=== PATIENT | male | born 1965 | race Caucasian/White ===

== ENCOUNTER 2016-11-08 21:12 | Emergency (ER) | payer SELFPAY ==
[~2016-11-08] VITALS: Ht 182.9 cm; Wt 109.8 kg
[2016-11-08 22:21] LABS: Basophils # (auto) 0.1 uL; Basophils % (auto) 0.5 % (0.0-2.0); Eosinophils # (auto) 0.3 uL; Eosinophils % (auto) 2.7 % (0.0-7.0); Hematocrit 50.2 % (41.0-53.0); Hemoglobin 17.1 g/dL (13.5-17.5); Lymphocytes # (auto) 2.4 uL; Lymphocytes % (auto) 24.7 % (10.0-50.0); Mean Corpuscular Hemoglobin 31.2 pg (28.0-32.0); Mean Corpuscular Volume 91.8 fL (80.0-100.0); Mean Platelet Volume 9.1 fL (7.4-10.4); Monocytes # (auto) 0.6 uL; Monocytes % (auto) 5.8 % (0.0-12.0); Neutrophils # (auto) 6.3 uL; Neutrophils % (auto) 66.3 % (37.0-80.0); Platelet Count (auto) 252 10^3/uL (140-450); Red Cell Distribution Width 13.4 % (11.6-16.0); White Blood Cell 9.5 10^3/uL (4.4-10.8)
[2016-11-08 22:49] LABS: Albumin 3.8 g/dL (3.4-5.0); Alkaline Phosphatase 74 U/L (45-117); Anion Gap 11 (5-15); Aspartate Aminotransferase 33 U/L (15-37); BUN/Creatinine Ratio 14.6; Bilirubin, Total 0.4 mg/dL (0.2-1.0); Blood Urea Nitrogen 14 mg/dL (7-18); Calcium 8.8 mg/dL (8.5-10.1); Carbon Dioxide 25 mmol/L (21-32); Chloride 109 mmol/L (98-107); GFR African American 107 mL/min; GFR Non-African American 88 mL/min; Glucose 122 mg/dL (74-106); Magnesium 2.4 mg/dL (1.6-2.6); Potassium 4.7 mmol/L (3.5-5.1); Sodium 145 mmol/L (136-145); Total Protein 7.7 g/dL (6.4-8.2)
[2016-11-08 22:53] LABS: Partial Thromboplastin Time 30.8 sec (22.64-33.71); Prothrombin Time 10.8 sec (9.37-12.3)
[2016-11-09] MEDS ORDERED: KETOROLAC TROMETH 60MG/2ML VIAL IM ONE (02:15)
[2016-11-09] MEDS ORDERED: IBUPROFEN 600 MG TAB PO ONE ×2 (02:15→02:30)
[2016-11-09] MEDS ORDERED: HYDROcodone-ACET 5/325MG TAB PO ONE (02:15)
[2016-11-09] MEDS ORDERED: HYDROcodone-ACET 10/325MG TAB PO ONE (02:30)
[2016-11-09 03:48] VITALS: BP 110/78
== END 2016-11-09 03:54 | disposition home or self-care (01) ==
LOC: EDBD 21:21 → ER 21:21
DX: S46.002A Unspecified injury of muscle(s) and tendon(s) of the rotator cuff of left shoulder, initial encounter (principal); R07.9 Chest pain, unspecified; X50.0XXA Overexertion from strenuous movement or load, initial encounter; Y93.89 Activity, other specified; Y99.0 Civilian activity done for income or pay; Y92.89 Other specified places as the place of occurrence of the external cause
CPT/HCPCS: 36415; 71010; 80053; 83735; 84484; 85025; 85610; 85730

== ENCOUNTER 2019-03-13 16:40 | Emergency (ER) | payer SELFPAY ==
[~2019-03-13] VITALS: Ht 180.3 cm; Wt 124.7 kg
[2019-03-13 17:49] LABS: Basophils # (auto) 0.1 uL; Basophils % (auto) 1.1 % (0.0-2.0); Eosinophils # (auto) 0.2 uL; Eosinophils % (auto) 2.2 % (0.0-7.0); Hematocrit 46.7 % (41.0-53.0); Hemoglobin 16.6 g/dL (13.5-17.5); Lymphocytes # (auto) 1.5 uL; Lymphocytes % (auto) 22.2 % (10.0-50.0); Mean Corpuscular Hemoglobin 33.5 pg (28.0-32.0); Mean Corpuscular Hgb Conc. 35.6 g/dL (32.0-36.0); Mean Corpuscular Volume 94.1 fL (80.0-100.0); Monocytes # (auto) 0.6 uL; Monocytes % (auto) 8.1 % (0.0-12.0); Neutrophils # (auto) 4.6 uL; Neutrophils % (auto) 66.4 % (37.0-80.0); Nucleated Red Blood Cells % 0.2 %; Platelet Count (auto) 124 10^3/uL (140-450); Red Blood Cells 4.96 10^6/uL (4.5-5.90); Red Cell Distribution Width 13.6 % (11.8-14.3)
[2019-03-13 17:58] LABS: Albumin 3.5 g/dL (3.4-5.0); Anion Gap 11 (5-15); BUN/Creatinine Ratio 10.6; Blood Urea Nitrogen 10 mg/dL (7-18); Calcium 8.9 mg/dL (8.5-10.1); Carbon Dioxide 21 mmol/L (21-32); Chloride 104 mmol/L (98-107); GFR African American 109 mL/min; GFR Non-African American 90 mL/min; Glucose 369 mg/dL (74-106); Magnesium 1.9 mg/dL (1.6-2.6); Potassium 3.4 mmol/L (3.5-5.1); Sodium 136 mmol/L (136-145)
[2019-03-13 18:07] LABS: Alanine Aminotransferase 92 U/L (16-61); Alkaline Phosphatase 116 U/L (45-117); Aspartate Aminotransferase 86 U/L (15-37); Bilirubin, Total 1.9 mg/dL (0.2-1.0); Total Protein 7.5 g/dL (6.4-8.2)
[2019-03-13] MEDS ORDERED: SODIUM CHLORIDE 0.9% 1,000 ML IV ONE (18:45)
[2019-03-13 22:00] VITALS: BP 112/76
== END 2019-03-13 22:13 | disposition home or self-care (01) ==
LOC: ER 16:45
DX: E86.0 Dehydration (principal); F17.210 Nicotine dependence, cigarettes, uncomplicated
CPT/HCPCS: 36415; 80053; 82550; 83735; 84484; 85025; 96360; 99284; J7030

== ENCOUNTER 2023-07-21 22:38 | Emergency (ER) | payer OTHER ==
[~2023-07-21] VITALS: Ht 182.9 cm; Wt 110.0 kg
[2023-07-21] MEDS ORDERED: IBUPROFEN 800 MG TAB PO ONE (23:15)
[2023-07-22] MEDS ORDERED: ONDANSETRON ODT 4 MG TAB PO ONE (03:45)
[2023-07-22] MEDS ORDERED: HYDROcodone-ACET 5/325MG TAB PO ONE (03:45)
[2023-07-22] MEDS ORDERED: IBUP1TAB5 PO (03:48)
[2023-07-22] MEDS ORDERED: CYCL-839 PO (03:48)
[2023-07-22 04:35] VITALS: BP 119/67; PULSE 79; RESP 20; TEMP 97.9
[2023-07-22 04:37] VITALS: O2SAT 97
== END 2023-07-22 04:46 | disposition home or self-care (01) ==
LOC: ER 22:38
DX: S43.402A Unspecified sprain of left shoulder joint, initial encounter (principal); F17.210 Nicotine dependence, cigarettes, uncomplicated; Z79.1 Long term (current) use of non-steroidal anti-inflammatories (NSAID); Z79.899 Other long term (current) drug therapy; X50.1XXA Overexertion from prolonged static or awkward postures, initial encounter; Y93.89 Activity, other specified; Y92.89 Other specified places as the place of occurrence of the external cause; Y99.8 Other external cause status
CPT/HCPCS: 73030; 99284; Q0162

== ENCOUNTER 2024-12-25 15:59 | Inpatient (IN) | payer MEDICAID, OTHER ==
[~2024-12-25] VITALS: Ht 182.9 cm; Wt 110.2 kg
[~2024-12-25 15:59] MED LIST: CYCL-839 PO; IBUP1TAB5 PO
--- NOTE | 2024-12-25 16:27 | ED.PDOC ---
GI ASSESSMENT HPI Comments 59-year-old male with a history of diabetes brought in by self complaining of 1 episode of vomiting blood about an hour prior to arrival. Patient states he did not have preceding nausea. Patient states he was performing regular daily activities when he suddenly developed the urge to vomit, then vomited a moderate amount of dark red blood (more than a cup). Denies any previous history of similar symptoms, abdominal pain, lightheadedness, shortness of breath, diarrhea, or urinary symptoms. He states he has been constipated recently. He states he takes a baby aspirin daily and occasionally takes ibuprofen for pain. Chief Complaint: Nausea/Vomiting Time Seen by MD: 16:20 Primary Care Provider: unknown Reviewed Notes: Nurses Notes, Medications, Allergies Allergies: Coded Allergies: NO KNOWN ALLERGIES (Unverified , 03/13/19) Home Meds Active Scripts Ibuprofen Micronized (Ibuprofen) 600 Mg Tab, 600 MG PO Q8HPRN PRN, #30 TAB 0 Refills Prov:[facility] 07/22/23 Cyclobenzaprine Hcl (Cyclobenzaprine Hcl) 10 Mg Tab, 10 MG PO TID, #12 TAB 0 Refills Prov:[facility] 07/22/23 Information Source: Patient Mode of Arrival: Ambulatory Timing: Minutes Duration: Since onset, Minutes Prehospital treatment: None Quality: None Vomitus: Bilious, Bloody, Tarry Black Stool: Other (constipated) Severity: Moderate Recent: None Recent Hx of: Diabetes Pain Location: None Associated sign and symptoms: Vomiting (black/bloody) Past Medical History PAST MEDICAL HISTORY: DM Surgical History (Other): Bilat shoulder Sx Family History Family History: Reviewed,noncontributory to illness Social History Smoker: Non-Smoker, Unknown Alcohol: Denies ETOH Use, Unknown Drugs: Denies Drug Use, Unknown Lives In: Home Constitutional: denies: chills, diaphoresis, fatigue, fever, malaise, sweats, weakness, others EENTM: denies: blurred vision, double vision, ear bleeding, ear discharge, ear drainage, ear pain, ear ringing, eye pain, eye redness, hearing loss, mouth pain, mouth swelling, nasal discharge, nose bleeding, nose congestion, nose pain, photophobia, tearing, throat pain, throat swelling, voice changes, others Respiratory: denies: cough, hemoptysis, orthopnea, SOB at rest, shortness of breath, SOB with excertion, stridor, wheezing, others Cardiovascular: denies: chest pain, dizzy spells, diaphoresis, Dyspnea on exertion, edema, irregular heart beat, left arm pain, lightheadedness, palpitations, PND, syncope, others Gastrointestinal: reports: hematemesis, vomiting; denies: abdomen distended, abdominal pain, blood streaked bowels, constipated, diarrhea, dysphagia, difficulty swallowing, melena, nausea, poor appetite, poor fluid intake, rectal bleeding, rectal pain, others Genitourinary: denies: burning, dysuria, flank pain, frequency, hematuria, incontinence, penile discharge, penile sore, pain, testicle pain, testicle swelling, urgency, others Neurological: denies: dizziness, fainting, headache, left sided numbness, left sided weakness, numbness, paresthesia, pre-existing deficit, right sided numbness, right sided weakness, seizure, speech problems, tingling, tremors, weakness, others Musculoskeletal: denies: back pain, gout, joint pain, joint swelling, muscle pain, muscle stiffness, neck pain, others Integumetry: denies: bruises, change in color, change in hair/nails, dryness, laceration, lesions, lumps, rash, wounds, others Allergic/Immunocompromised: denies: Difficulty Healing, Frequent Infections, Hives, Itching, others Hematologic/Lymphatic: denies: anemia, blood clots, easy bleeding, easy bruising, swollen glands, others Endocrine: denies: excessive hunger, excessive sweating, excessive thirst, excessive urination, flushing, intolerance to cold, intolerance to heat, unexplained weight gain, unexplained weight loss, others Psychiatric: denies: anxiety, bipolar disorder, depression, hopeless, panic disorder, schizophrenia, sleepless, suicidal, others All Other Systems: Reviewed and Negative Physical Exam General Appearance: No Apparent Distress, Normal HEENT: Other (Pupils and face symmetric. Moist mucous membranes.) Neck: Full Range of Motion, Normal Inspection Respiratory: Lungs Clear, No Accessory Muscle Use, No Respiratory Distress, Normal Breath Sounds Cardiovascular: No Edema, No JVD, Regular Rate/Rhythm Breast Exam: Deferred Gastrointestinal: Non Tender, Soft Genitalia: Deferred Pelvic: Deferred Rectal: Deferred Extremities: Normal inspection, Normal range of motion, Non-tender, No pedal edema Musculoskeletal : Apperance: Normal Neurologic: Alert (Oriented x4), Normal Affect, Normal Mood, Other (Ambulatory) Cerebellar Function: NOT DONE Reflexes: NOT DONE Skin: Dry, Normal Color, Warm Lymphatic: NOT DONE Was a procedure done? Was a procedure done?: No GI differential Dx Differential Diagnosis: Esophagitis, Gastritis/PUD, Gastroenteritis, GI hemorrhage, Dehydration, Electrolyte Imbalance, Food Poisoning, Bacterial, Viral, Hypovolemia, Ischemic Bowel, Anemia, Esophageal Varicies, Stress Ulcer, Other (Coagulopathy, among others) X-Ray, Labs, Meds, VS Vital Signs Date Time Temp Pulse Resp B/P (MAP) Pulse Ox O2 Delivery O2 Flow Rate FiO2 12/25/24 16:13 98.0 76 16 131/83 (99) 95 98.0 Lab Test 12/25/24 17:05 Range/Units White Blood Count 6.7 4.4-10.8 10^3/uL Red Blood Count 4.50 4.5-5.90 10^6/uL Hemoglobin 14.7 13.5-17.5 g/dL Hematocrit 42.7 41.0-53.0 % Mean Corpuscular Volume 94.9 80.0-100.0 fL Mean Corpuscular Hemoglobin 32.8 H 28.0-32.0 pg Mean Corpuscular Hemoglobin Concent 34.5 32.0-36.0 g/dL Red Cell Distribution Width 14.7 H 11.8-14.3 % Platelet Count 121 L 140-450 10^3/uL Mean Platelet Volume 10.0 6.9-10.8 fL Neutrophils (%) (Auto) 70.5 37.0-80.0 % Lymphocytes (%) (Auto) 16.4 10.0-50.0 % Monocytes (%) (Auto) 9.8 0.0-12.0 % Eosinophils (%) (Auto) 2.3 0.0-7.0 % Basophils (%) (Auto) 1.0 0.0-2.0 % Neutrophils # (Auto) 4.7 1.6-8.6 10 ^3/uL Lymphocytes # (Auto) 1.1 0.4-5.4 10 ^3/uL Monocytes # (Auto) 0.7 0-1.3 10 ^3/uL Eosinophils # (Auto) 0.2 0-0.8 10 ^3/uL Basophils # (Auto) 0.1 0-0.2 10 ^3/uL Nucleated Red Blood Cells 0.2 % Prothrombin Time 13.8 H 9.3-11.8 sec Prothrombin Time INR 1.34 H 0.9-1.15 Activated Partial Thromboplast Time 29.1 24.5-34.5 SEC Sodium Level 140 136-145 mmol/L Potassium Level 4.1 3.5-5.1 mmol/L Chloride Level 110 H 98-107 mmol/L Carbon Dioxide Level 22 20-31 mmol/L Anion Gap 8 5-15 Blood Urea Nitrogen 16 9-23 mg/dL Creatinine 0.62 L 0.700-1.30 mg/dL Glomerular Filtration Rate Calc 111 >90 mL/min BUN/Creatinine Ratio 25.8 H 10.0-20.0 Serum Glucose 171 H 74-106 mg/dL Calcium Level 8.7 8.7-10.4 mg/dL PROCEDURE(s): ABPL - CT AB PEL WO CON-NO ORAL OR IV REASON: hematemesis ORDER NUMBER(s): [id number], ACCESSION NUMBER(s): [id number] CT abdomen and pelvis without contrast INDICATION: hematemesis TECHNIQUE: Serial axial images were performed through the abdomen and pelvis and then reformatted in the sagittal and coronal plane. All CT scans at this medical facility are performed using dose modulation techniques as appropriate to a performed exam including the following: Automated exposure control was utilized; adjustment of the MA and/or KvP according to patient size; and use of iterative reconstruction technique. FINDINGS: Liver is normal in size without mass. The liver margin is slightly nodular in appearance suggesting cirrhosis. Spleen is slightly enlarged measuring 16 cm. No renal masses, stones or hydronephrosis. No masses or enlargement of the adrenal glands or pancreas. No biliary dilatation. No gallstones. No distention of bowel loops to suggest mechanical obstruction of bowel. The appendix is normal in appearance. No free fluid. Within the pelvis, bladder is smooth walled without stones. No abnormal masses or fluid collections. IMPRESSION: 1. Cirrhotic appearing liver with splenomegaly probably due to portal hypertension. Because no IV contrast was given evaluation for varices is limited.No evidence 2. No evidence of bowel obstruction. Computed Tomographic Radiation Dosimetry Report: Total CTDI vol = 23.19mGy Total DLP = 1322.75mGy-cm Low dose protocols were performed. X-Ray, Labs, Meds, VS Comment 59-year-old male with a history of diabetes complaining of 1 episode of painless bloody emesis Vitals unremarkable Exam unremarkable Rhythm strip independently interpreted by me: Sinus rhythm, rate 76, no ectopy. CT abdomen and pelvis: IMPRESSION: 1. Cirrhotic appearing liver with splenomegaly probably due to portal hypertension. Because no IV contrast was given evaluation for varices is limited.No evidence 2. No evidence of bowel obstruction. CBC remarkable for platelets 121, basic metabolic panel unremarkable, coag panel remarkable for PT 13.8, INR 1.34 Patient treated with the following in the ED: Zofran 4 mg IV, Protonix 40 mg IV, octreotide 100 mg IV On re-evaluation, patient is pain-free and appears hemodynamically stable. No further episodes of emesis. Plan is to admit the patient for GI evaluation. Time of 1ST Reevaluation: 16:50 Reevaluation 1ST: Unchanged Time of 2ND Reevaluation: 18:22 Reevaluation 2ND: Unchanged Patient Education/Counseling: Diagnosis, Treatment, Prognosis Family Education/Counseling: No Family Present Departure 1 Departure Time of Disposition: 18:22 Impression: Primary Impression: Hematemesis Qualified Codes: K92.0 - Hematemesis Additional Impression: Coagulopathy Disposition: ADMITTED INPATIENT Admit to: [facility] Condition: Guarded Critical Care Note Critical Care Time?: No Stability Stability form required: No Heart Score Heart Score: Heart Score Response (Comments) Value History N/A 0 EKG N/A 0 Age N/A 0 Risk Factors N/A 0 Troponin N/A 0 Total 0 I personally scribed for DONNIE DANIELS MD ([email or web address]) on 12/25/24 at 16:27. Electronically submitted by James Espinoza ([email or web address]). DONNIE DANIELS MD Dec 25, 2024 16:27
--- NOTE | 2024-12-25 17:13 | DVH ---
CT abdomen and pelvis without contrast INDICATION: hematemesis TECHNIQUE: Serial axial images were performed through the abdomen and pelvis and then reformatted in the sagittal and coronal plane. All CT scans at this medical facility are performed using dose modula tion techniques as appropriate to a performed exam including the following: Automated exposure contro l was utilized; adjustment of the MA and/or KvP according to patient size; and use of iterative recon struction technique. FINDINGS: Liver is normal in size without mass. The liver margin is slightly nodular in appearance helm ggesting cirrhosis. Spleen is slightly enlarged measuring 16 cm. No renal masses, stones or hydronephrosis. No masses or enlargement of the adrenal glands or pancreas . No biliary dilatation. No gallstones. No distention of bowel loops to suggest mechanical obstructio n of bowel. The appendix is normal in appearance. No free fluid. Within the pelvis, bladder is smooth walled without stones. No abnormal masses or fluid collections. IMPRESSION: 1. Cirrhotic appearing liver with splenomegaly probably due to portal hypertension. Because no IV con trast was given evaluation for varices is limited.No evidence 2. No evidence of bowel obstruction. Computed Tomographic Radiation Dosimetry Report: Total CTDI vol = 23.19mGy Total DLP = 1322.75mGy-cm Low dose protocols were performed.
[2024-12-25 17:30] LABS: Basophils # (auto) 0.1 10 ^3/uL (0-0.2); Eosinophils # (auto) 0.2 10 ^3/uL (0-0.8); Eosinophils % (auto) 2.3 % (0.0-7.0); Hematocrit 42.7 % (41.0-53.0); Hemoglobin 14.7 g/dL (13.5-17.5); Lymphocytes # (auto) 1.1 10 ^3/uL (0.4-5.4); Lymphocytes % (auto) 16.4 % (10.0-50.0); Mean Corpuscular Hemoglobin 32.8 pg (28.0-32.0); Mean Corpuscular Hgb Conc. 34.5 g/dL (32.0-36.0); Mean Corpuscular Volume 94.9 fL (80.0-100.0); Monocytes # (auto) 0.7 10 ^3/uL (0-1.3); Monocytes % (auto) 9.8 % (0.0-12.0); Neutrophils # (auto) 4.7 10 ^3/uL (1.6-8.6); Neutrophils % (auto) 70.5 % (37.0-80.0); Nucleated Red Blood Cells % 0.2 %; Platelet Count (auto) 121 10^3/uL (140-450); Red Cell Distribution Width 14.7 % (11.8-14.3); White Blood Cell 6.7 10^3/uL (4.4-10.8)
[2024-12-25 17:39] LABS: Potassium 4.1 mmol/L (3.5-5.1); Sodium 140 mmol/L (136-145)
[2024-12-25 17:40] LABS: Anion Gap 8 (5-15); Calcium 8.7 mg/dL (8.7-10.4); Carbon Dioxide 22 mmol/L (20-31); Chloride 110 mmol/L (98-107)
[2024-12-25 17:44] LABS: INR 1.34 (0.9-1.15); Partial Thromboplastin Time 29.1 SEC (24.5-34.5); Prothrombin Time 13.8 sec (9.3-11.8)
[2024-12-25 17:45] LABS: BUN/Creatinine Ratio 25.8 (10.0-20.0); Blood Urea Nitrogen 16 mg/dL (9-23)
[2024-12-25 17:49] LABS: Glucose 171 mg/dL (74-106)
[2024-12-25] MEDS: ONDANSETRON HCL 4 MG/2 ML VIAL IV ONE (18:25)
[2024-12-25] MEDS: PANTOPRAZOLE 40 MG/10 ML VIAL INJ IV ONE (18:25)
[2024-12-25] MEDS: OCTREOTIDE ACETATE 100 MCG in SODIUM CHL 0.9% 50 ML IV ONE (18:26)
[2024-12-25 19:40] LABS: Urine Bacteria FEW /hpf (None Seen); Urine Blood Negative /uL (Negative); Urine Clarity Clear (Clear); Urine Color Yellow (Yellow); Urine Mucus MODERATE (None Seen); Urine Protein, UAD 1+ (Negative); Urine Specific Gravity 1.036 (1.001-1.035); Urine Squamous Epithelial Cell FEW /hpf (<5); Urine Urobilinogen 3 mg/dL (Negative); Urine WBC 1 /HPF (0-3)
[2024-12-25] MEDS ORDERED: DEXTROSE (50%) 50ML SYRG IV PRN (20:00)
[2024-12-25] MEDS: SODIUM CHLORIDE 0.9% 1,000 ML IV ONE (20:00)
[2024-12-25] MEDS ORDERED: ONDANSETRON HCL 4 MG/2 ML VIAL IV PRN (20:00)
--- NOTE | 2024-12-25 21:20 | DVHHP2 ---
History of Present Illness Reason for Visit: Hematemesis History of Present Illness 59-year-old male presents for evaluation of hematemesis. Patient reports a one day history of having three episodes of dark color vomit. He states that a week ago he started taking Suboxone for narcotic dependency. He also reports a five day history of constipation. Denies melena. No other acute complaints reported. Past Medical History Diabetes mellitus Past Surgical History Shoulder surgery Family History Noncontributory Smoke: No ALCOHOL: none Drugs: None Lives: with Family Review of Systems Review of Systems Review of systems are currently negative otherwise addressed in HPI. Allergies: Coded Allergies: NO KNOWN ALLERGIES (Unverified , 03/13/19) Medications Current Medications Medications Dose Ordered Sig/Shahla Route Start Time Stop Time Status Last Admin Dose Admin Pantoprazole Sodium 40 mg BID IV 12/25/24 22:00 Diagnostic Test (Pha) 1 strip Q6HR 12/26/24 00:00 Insulin Human Regular Q6HR SC 12/26/24 00:00 Dextrose 50 ml UD PRN IV 12/25/24 20:00 Ondansetron HCl 4 mg Q4HP PRN IV 12/25/24 20:00 Exam Vital Signs Vital Signs Date Time Temp Pulse Resp B/P (MAP) Pulse Ox O2 Delivery O2 Flow Rate FiO2 12/25/24 18:28 97 18 120/78 (92) 97 12/25/24 16:13 98.0 98.0 Exam Gen: 59-year-old male in no apparent distress. Skin: Warm, dry, normal color and texture, no rash. HEENT: Normocephalic atraumatic, mucous membranes moist and pink. Neck: Cervical and supraclavicular nodes normal without enlargement, trachea is midline, thyroid gland is normal without masses. Pulmonary: Clear to auscultation and percussion bilaterally. Cardiac: Regular rate and rhythm. No murmur Abdomen: Soft, nontender, nondistended, bowel sounds present all 4 quadrants, no guarding, no rigidity, no organomegaly. Extremities: No cyanosis, clubbing, no edema Neuro: Cranial nerves II through XII grossly intact, normal affect and speech, no focal motor deficits. Labs/Xrays ORDERING PHYSICIAN: DONNIE DANIELS MD PROCEDURE(s): ABPL - CT AB PEL WO CON-NO ORAL OR IV REASON: hematemesis ORDER NUMBER(s): [id number], ACCESSION NUMBER(s): [id number] CT abdomen and pelvis without contrast INDICATION: hematemesis TECHNIQUE: Serial axial images were performed through the abdomen and pelvis and then reformatted in the sagittal and coronal plane. All CT scans at this medical facility are performed using dose modulation techniques as appropriate to a performed exam including the following: Automated exposure control was utilized; adjustment of the MA and/or KvP according to patient size; and use of iterative reconstruction technique. FINDINGS: Liver is normal in size without mass. The liver margin is slightly nodular in appearance suggesting cirrhosis. Spleen is slightly enlarged measuring 16 cm. No renal masses, stones or hydronephrosis. No masses or enlargement of the adren al glands or pancreas. No biliary dilatation. No gallstones. No distention of bowel loops to suggest mechanical obstruction of bowel. The appendix is normal in appearance. No free fluid. Within the pelvis, bladder is smooth walled without stones. No abnormal masses or fluid collections. IMPRESSION: 1. Cirrhotic appearing liver with splenomegaly probably due to portal hypertensi on. Because no IV contrast was given evaluation for varices is limited.No evidence 2. No evidence of bowel obstruction. Computed Tomographic Radiation Dosimetry Report: Total CTDI vol = 23.19mGy Total DLP = 1322.75mGy-cm Low dose protocols were performed. ATED BY: SALBADOR CHAN MD Labs Test 12/25/24 18:54 12/25/24 17:05 Range/Units Urine Color Yellow Yellow Urine Clarity Clear Clear Urine pH 6.0 5.0-9.0 Urine Specific [place] 1.036 H 1.001-1.035 Urine Protein 1+ H Negative Urine Ketones Trace Negative Urine Blood Negative Negative /uL Urine Nitrite Negative Negative Urine Bilirubin Negative Negative Urine Urobilinogen 3 H Negative mg/dL Urine Leukocyte Esterase Negative Negative /uL Urine RBC 1 0 - 3 /hpf Urine Microscopic WBC 1 0-3 /HPF Urine Squamous Epithelial Cells Few <5 /hpf Urine Bacteria Few H None Seen /hpf Urine Mucus Moderate None Seen Urine Glucose 3+ H Normal mg/dL White Blood Count 6.7 4.4-10.8 10^3/uL Red Blood Count 4.50 4.5-5.90 10^6/uL Hemoglobin 14.7 13.5-17.5 g/dL Hematocrit 42.7 41.0-53.0 % Mean Corpuscular Volume 94.9 80.0-100.0 fL Mean Corpuscular Hemoglobin 32.8 H 28.0-32.0 pg Mean Corpuscular Hemoglobin Concent 34.5 32.0-36.0 g/dL Red Cell Distribution Width 14.7 H 11.8-14.3 % Platelet Count 121 L 140-450 10^3/uL Mean Platelet Volume 10.0 6.9-10.8 fL Neutrophils (%) (Auto) 70.5 37.0-80.0 % Lymphocytes (%) (Auto) 16.4 10.0-50.0 % Monocytes (%) (Auto) 9.8 0.0-12.0 % Eosinophils (%) (Auto) 2.3 0.0-7.0 % Basophils (%) (Auto) 1.0 0.0-2.0 % Neutrophils # (Auto) 4.7 1.6-8.6 10 ^3/uL Lymphocytes # (Auto) 1.1 0.4-5.4 10 ^3/uL Monocytes # (Auto) 0.7 0-1.3 10 ^3/uL Eosinophils # (Auto) 0.2 0-0.8 10 ^3/uL Basophils # (Auto) 0.1 0-0.2 10 ^3/uL Nucleated Red Blood Cells 0.2 % Prothrombin Time 13.8 H 9.3-11.8 sec Prothrombin Time INR 1.34 H 0.9-1.15 Activated Partial Thromboplast Time 29.1 24.5-34.5 SEC Sodium Level 140 136-145 mmol/L Potassium Level 4.1 3.5-5.1 mmol/L Chloride Level 110 H 98-107 mmol/L Carbon Dioxide Level 22 20-31 mmol/L Anion Gap 8 5-15 Blood Urea Nitrogen 16 9-23 mg/dL Creatinine 0.62 L 0.700-1.30 mg/dL Glomerular Filtration Rate Calc 111 >90 mL/min BUN/Creatinine Ratio 25.8 H 10.0-20.0 Serum Glucose 171 H 74-106 mg/dL Calcium Level 8.7 8.7-10.4 mg/dL Assessment/Plan Assessment/Plan Assessment Hematemesis Diabetes mellitus Plan Admit the patient to Med surge to the hospitalist GI consult NPO Protonix Type and screen pending Continue treatment per orders. Plan discussed with: Patient My Orders Orders - CHARLES CELESTIN Procedure Category Date Status Time Admit ADMIT 12/25/24 Transmitted 19:35 Pantoprazole PHA 12/25/24 In Process (Protonix) 22:00 Type And Screen BBK 12/25/24 In Process 19:50 Hemoglobin & LAB 12/25/24 Logged Hematocrit 21:00 * Gi Dvh Shredder Picker CONS 12/25/24 Transmitted 19:50 Glucose Blood PHA 12/26/24 In Process (Accu-Chek Comfort 00:00 Insulin R (Human) PHA 12/26/24 In Process (Insulin R) 00:00 Dextrose 50% Syringe PHA 12/25/24 In Process 20:00 Ondansetron Hcl PHA 12/25/24 In Process (Zofran) 20:00 Complete Blood Count LAB 12/26/24 Verified 04:00 Comprehensive LAB 12/26/24 Verified Metabolic Panel 04:00 Npo (Nothing By DIET 12/26/24 Transmitted Mouth) Diet Breakfast Condition: Stable BRENNA 12/25/24 In Process 19:50 Bedrest With Bathroom BRENNA 12/25/24 In Process Privileg 19:50 Sodium Chloride 0.9% PHA 12/25/24 In Process 20:00 Stool Occult Blood LAB 12/25/24 Uncollected 19:57 Gastric Occult Blood LAB 12/25/24 Logged 19:57 Date of Service: Dec 25, 2024 Billing Provider: CHARLES CELESTIN Common Visit Codes: [id number] INP/OBS CARE (HIGH) CHARLES CELESTIN Dec 25, 2024 21:19
[2024-12-25 21:24] LABS: Hematocrit 43.2 % (41.0-53.0); Hemoglobin 14.9 g/dL (13.5-17.5)
[2024-12-26] VITALS (7 sets, daily range): BP systolic 109–141; BP diastolic 65–76; PULSE 45–87; RESP 14–20; TEMP 97.6–98; O2SAT 45–98
[2024-12-26] MEDS: PANTOPRAZOLE 40 MG/10 ML VIAL INJ IV SCH (00:15)
[2024-12-26] MEDS: ACCU-CHEK COMFORT CURVE STRIP VI SCH (00:15)
[2024-12-26] MEDS: InsuLIN REG 1unit/0.01ml Soln (100units/ml) SC SCH (00:21)
[2024-12-26 06:14] LABS: Alanine Aminotransferase 38 U/L (7-40); Alkaline Phosphatase 70 U/L (46-116); Anion Gap 8 (5-15); BUN/Creatinine Ratio 25.9 (10.0-20.0); Blood Urea Nitrogen 14 mg/dL (9-23); Carbon Dioxide 23 mmol/L (20-31); Sodium 141 mmol/L (136-145); Total Protein 5.8 g/dL (5.7-8.2)
[2024-12-26 06:25] LABS: Albumin 3.2 g/dL (3.2-4.8); Aspartate Aminotransferase 41 U/L (13-40); Bilirubin, Total 2.5 mg/dL (0.2-1.0); Calcium 8.4 mg/dL (8.7-10.4); Chloride 110 mmol/L (98-107); Glucose 128 mg/dL (74-106)
[2024-12-26 08:11] LABS: Basophils # (auto) 0 10 ^3/uL (0-0.2); Eosinophils # (auto) 0.2 10 ^3/uL (0-0.8); Eosinophils % (auto) 5.6 % (0.0-7.0); Hematocrit 37.5 % (41.0-53.0); Hemoglobin 12.8 g/dL (13.5-17.5); Lymphocytes % (auto) 23.6 % (10.0-50.0); Mean Corpuscular Hemoglobin 32.3 pg (28.0-32.0); Mean Corpuscular Hgb Conc. 34.1 g/dL (32.0-36.0); Mean Corpuscular Volume 94.7 fL (80.0-100.0); Monocytes # (auto) 0.5 10 ^3/uL (0-1.3); Monocytes % (auto) 10.5 % (0.0-12.0); Neutrophils # (auto) 2.6 10 ^3/uL (1.6-8.6); Neutrophils % (auto) 59.3 % (37.0-80.0); Nucleated Red Blood Cells % 0.1 %; Platelet Count (auto) 77 10^3/uL (140-450); Red Blood Cells 3.96 10^6/uL (4.5-5.90); Red Cell Distribution Width 14.7 % (11.8-14.3); White Blood Cell 4.4 10^3/uL (4.4-10.8)
--- NOTE | 2024-12-26 12:58 | DVHINCON2 ---
GI Consult Consult Note GI consult note Date of Consultation: 12/26/2024 Chief Complaint: Hematemesis Referring Physician: Dirk LEWIS H&P: 59-year-old male presented to ER with complains of hematemesis, for one day, with three episodes of dark emesis. No nausea or vomiting today. Denies abdominal pain. Last bowel movement one-week ago, no melena or red blood in stool. Patient has a history of taking hydrocodone for chronic pain, has been treated with Suboxone for the narcotic dependency, patient is started symptoms of nausea vomiting after being treated with Suboxone. Patient has history of heavy alcohol use, quit eight years ago No EGD or colonoscopy in past Take aspirin every day, last dose two days ago. Takes Motrin as needed about twice a week for pain Past Medical History: Diabetes mellitus Past Surgical History: Shoulder surgery Social History: NO smoking, quit drinking ETOH Family History: Noncontributory Review of Systems: Constitutional: no fever, chill, weight loss HEENT: no eye pain, no hearing loss, no oral lesion, no scleral icterus Heart: no chest pain, no chest pressure Lung: no cough, no dyspnea with exertion Abdomen: see HPI Physical exam: General: NAD, AAOX3 Chest: lung adames clear to auscultation Heart: RRR, no murmur Abdomen: non-distended, no tenderness to palpation, +BS Labs: Labs Test 12/26/24 11:17 12/26/24 07:49 12/26/24 05:08 12/25/24 18:54 Range/Units POC Glucose 163 H 70-106 mg/dl White Blood Count 4.4 # 4.4-10.8 10^3/uL Red Blood Count 3.96 L 4.5-5.90 10^6/uL Hemoglobin 12.8 L 13.5-17.5 g/dL Hematocrit 37.5 #L 41.0-53.0 % Mean Corpuscular Volume 94.7 80.0-100.0 fL Mean Corpuscular Hemoglobin 32.3 H 28.0-32.0 pg Mean Corpuscular Hemoglobin Concent 34.1 32.0-36.0 g/dL Red Cell Distribution Width 14.7 H 11.8-14.3 % Platelet Count 77 L 140-450 10^3/uL Mean Platelet Volume 8.7 6.9-10.8 fL Neutrophils (%) (Auto) 59.3 37.0-80.0 % Lymphocytes (%) (Auto) 23.6 10.0-50.0 % Monocytes (%) (Auto) 10.5 0.0-12.0 % Eosinophils (%) (Auto) 5.6 0.0-7.0 % Basophils (%) (Auto) 1.0 0.0-2.0 % Neutrophils # (Auto) 2.6 1.6-8.6 10 ^3/uL Lymphocytes # (Auto) 1.0 0.4-5.4 10 ^3/uL Monocytes # (Auto) 0.5 0-1.3 10 ^3/uL Eosinophils # (Auto) 0.2 0-0.8 10 ^3/uL Basophils # (Auto) 0 0-0.2 10 ^3/uL Nucleated Red Blood Cells 0.1 % Sodium Level 141 136-145 mmol/L Potassium Level 4.0 3.5-5.1 mmol/L Chloride Level 110 H 98-107 mmol/L Carbon Dioxide Level 23 20-31 mmol/L Anion Gap 8 5-15 Blood Urea Nitrogen 14 9-23 mg/dL Creatinine 0.54 L 0.700-1.30 mg/dL Glomerular Filtration Rate Calc 116 >90 mL/min BUN/Creatinine Ratio 25.9 H 10.0-20.0 Serum Glucose 128 H 74-106 mg/dL Calcium Level 8.4 L 8.7-10.4 mg/dL Total Bilirubin 2.5 H 0.2-1.0 mg/dL Aspartate Amino Transferase (AST) 41 H 13-40 U/L Alanine Aminotransferase (ALT) 38 7-40 U/L Alkaline Phosphatase 70 46-116 U/L Total Protein 5.8 5.7-8.2 g/dL Albumin 3.2 3.2-4.8 g/dL Urine Color Yellow Yellow Urine Clarity Clear Clear Urine pH 6.0 5.0-9.0 Urine Specific [place] 1.036 H 1.001-1.035 Urine Protein 1+ H Negative Urine Ketones Trace Negative Urine Blood Negative Negative /uL Urine Nitrite Negative Negative Urine Bilirubin Negative Negative Urine Urobilinogen 3 H Negative mg/dL Urine Leukocyte Esterase Negative Negative /uL Urine RBC 1 0 - 3 /hpf Urine Microscopic WBC 1 0-3 /HPF Urine Squamous Epithelial Cells Few <5 /hpf Urine Bacteria Few H None Seen /hpf Urine Mucus Moderate None Seen Urine Glucose 3+ H Normal mg/dL Test 12/25/24 17:05 Range/Units Prothrombin Time 13.8 H 9.3-11.8 sec Prothrombin Time INR 1.34 H 0.9-1.15 Activated Partial Thromboplast Time 29.1 24.5-34.5 SEC Imaging: CT abdomen pelvis IMPRESSION: 1. Cirrhotic appearing liver with splenomegaly probably due to portal hypertension. Because no IV contrast was given evaluation for varices is limited.No evidence 2. No evidence of bowel obstruction. Assessment: Hematemesis Opioid dependence History of alcohol use Cirrhotic appearing liver per CT results Plan: Discussed with Dr. Elizondo - Pt will be scheduled for an EGD per OR availability. Pt was informed of the risks (bleeding, infection, perforation, reaction to sedation medications and cardiopulmonary arrest) and benefit and is agreeable to undergo the procedures. Protonix and Zofran Colace. Lactulose if needed We will continue to monitor patient Discussed plan with patient and RN Thank you for this consult Date of Service: Dec 26, 2024 Billing Provider: ASHLY MILLER Common Visit Codes: CONSULT ONLY Consultation Codes: [id number] CONSULT <60MIN ASHLY MILLER Dec 26, 2024 12:58
[2024-12-26] MEDS ORDERED: DOCUSATE SOD 100 MG CAP PO PRN (13:00)
--- NOTE | 2024-12-26 13:26 | DVHPN2 ---
Assessment/Plan Assessment/Plan Progress note 59 M with prior alcohol use, prior opioid use on suboxone therapy, admitted for hematemesis. Patient was previously using hydrocodone, but recently swapped with suboxone and was having constipation and nausea with it. Patient had hematemesis 1 day [employer]. No BM since 1 week. Using motrin PRN for pain. Pt would like to stop taking suboxone. Physical exam AOx4 Obese PERLLA MMM Clear breath sounds S1 S2 RRR no murmur Abdomen soft nontender No LE edema Labs EKG imaging reviewed Assessment and plan UGIB PUD vs esophageal varices (low susp) Possible cirrhosis thrombocytopenia high INR asymptomatic bacteriuria NIDDM opioid induced constipation hx of opioid use on suboxone hx of alcohol use GI consult to scope NPO senna MiraLAX ISS while NPO Trend H/H will symptomatically treat if opioid withdrawal occurs protonix full code dvt ppx hold iso bleeding diet NPO Plan discussed with: Patient My Orders Orders - CRISSY BUTT MD Procedure Category Date Status Time Senna Pod Tablet PHA 12/26/24 Logged (Senokot Tablet) 13:30 Polyethylene Glycol PHA 12/27/24 Logged 17g Powder (Miralax 10:00 Complete Blood Count LAB 12/27/24 Verified 04:00 Basic Metabolic Panel LAB 12/27/24 Verified 04:00 Date of Service: Dec 26, 2024 Billing Provider: CRISSY BUTT MD Common Visit Codes: [id number] INP/OBS CARE(HIGH) CRISSY BUTT MD Dec 26, 2024 13:26
[2024-12-26] MEDS: SENNA 8.6 MG TAB PO ONE (16:25)
[2024-12-27] VITALS (10 sets, daily range): BP systolic 104–125; BP diastolic 61–86; PULSE 56–114; RESP 16–20; TEMP 97.4–98.3; O2SAT 95–100
--- NOTE | 2024-12-27 06:44 | DVH ---
CHEST RADIOGRAPH Indication: pre-op Technique: Single frontal view of the chest was obtained Comparison: None FINDINGS: Lines and Tubes: None Lungs: No focal consolidation. Pleura: No effusion. No pneumothorax. Cardiomediastinal contours: Unremarkable Bones: No acute osseous abnormality. IMPRESSION: 1. No acute cardiopulmonary disease.
[2024-12-27 06:53] LABS: Anion Gap 8 (5-15); Carbon Dioxide 25 mmol/L (20-31); Potassium 3.9 mmol/L (3.5-5.1); Sodium 142 mmol/L (136-145)
[2024-12-27 06:58] LABS: BUN/Creatinine Ratio 18.5 (10.0-20.0); Basophils # (auto) 0 10 ^3/uL (0-0.2); Basophils % (auto) 0.7 % (0.0-2.0); Blood Urea Nitrogen 12 mg/dL (9-23); Eosinophils # (auto) 0.2 10 ^3/uL (0-0.8); Eosinophils % (auto) 5.4 % (0.0-7.0); Hematocrit 34.6 % (41.0-53.0); Hemoglobin 12.1 g/dL (13.5-17.5); Lymphocytes # (auto) 0.7 10 ^3/uL (0.4-5.4); Lymphocytes % (auto) 18.8 % (10.0-50.0); Mean Corpuscular Hgb Conc. 34.9 g/dL (32.0-36.0); Mean Corpuscular Volume 94.4 fL (80.0-100.0); Monocytes # (auto) 0.5 10 ^3/uL (0-1.3); Monocytes % (auto) 13.6 % (0.0-12.0); Neutrophils # (auto) 2.2 10 ^3/uL (1.6-8.6); Neutrophils % (auto) 61.5 % (37.0-80.0); Nucleated Red Blood Cells % 0.1 %; Platelet Count (auto) 68 10^3/uL (140-450); Red Blood Cells 3.66 10^6/uL (4.5-5.90); Red Cell Distribution Width 14.7 % (11.8-14.3); White Blood Cell 3.6 10^3/uL (4.4-10.8)
[2024-12-27 06:59] LABS: Calcium 8.1 mg/dL (8.7-10.4); Chloride 109 mmol/L (98-107); Glucose 135 mg/dL (74-106)
[2024-12-27] MEDS: POLYETHYLENE GLYCOL 17 GM PWDR PO SCH (08:56)
[2024-12-27] MEDS ORDERED: SODIUM CHLORIDE LOCK 10 ML ONE (09:31)
--- NOTE | 2024-12-27 10:39 | DVHPN2 ---
Assessment/Plan Assessment/Plan Progress note 59 M with prior alcohol use, prior opioid use on suboxone therapy, admitted for hematemesis. Patient was previously using hydrocodone, but recently swapped with suboxone and was having constipation and nausea with it. Patient had hematemesis 1 day [employer]. No BM since 1 week. Using motrin PRN for pain. Pt would like to stop taking suboxone. seen today during rounds. cows 0. pending scope today. h/h stable Physical exam AOx4 Obese PERLLA MMM Clear breath sounds S1 S2 RRR no murmur Abdomen soft nontender No LE edema Labs EKG imaging reviewed Assessment and plan UGIB PUD vs esophageal varices (low susp) Possible cirrhosis thrombocytopenia high INR asymptomatic bacteriuria NIDDM opioid induced constipation hx of opioid use on suboxone hx of alcohol use GI consult to scope NPO senna MiraLAX ISS while NPO Trend H/H will symptomatically treat if opioid withdrawal occurs protonix full code dvt ppx hold iso bleeding diet NPO Plan discussed with: Patient My Orders Orders - CRISSY BUTT MD Procedure Category Date Status Time Polyethylene Glycol PHA 12/27/24 In Process 17g Powder (Miralax 10:00 Chest Portable XY 12/26/24 Resulted 22:30 Date of Service: Dec 27, 2024 Billing Provider: CRISSY BUTT MD Common Visit Codes: [id number] INP/OBS CARE(HIGH) CRISSY BUTT MD Dec 27, 2024 10:39
[2024-12-27] MEDS: LIDOCAINE VISCOUS 2% 15ML UD ONE (14:41)
[2024-12-27] MEDS: MIDAZOLAM HCL 5 MG/ML-1ML VIAL ONE (14:43)
[2024-12-27] MEDS: fentaNYL CITRATE 100 MCG/2 ML VL ONE (14:43)
[2024-12-27] MEDS: diphenhdrAMINE HCL 50 MG/1 ML VL ONE (14:43)
--- NOTE | 2024-12-27 15:00 | DVHOP2 ---
Operative Report DATE OF OPERATION: 12/27/24 PROCEDURE: Upper Endoscopy with biopsy. PREOPERATIVE INDICATION: The patient is a 59 -year-old male undergoing endoscopy for upper GI bleed POSTOPERATIVE DIAGNOSES: 1. Patient had one to 2+ distal esophageal varices which flattened with insufflation and there were no red Man signs 2. 1-2 cm sliding-type hiatal hernia with grade a erosive esophagitis; distal esophageal benign-appearing nodule was removed by biopsy forceps 3. Mild portal HTN gastropathy more prominent in the proximal stomach and 4. Mild duodenitis otherwise normal examination up to the 2nd and 3rd part of the duodenal good bile drainage and no fresh or old blood in the upper GI tract PROCEDURE PERFORMED BY: Kyra Elizondo GI NURSE: Edison SCOPE: Olympus videoendoscope. ASA CLASS: 3 PREOPERATIVE MEDICATIONS: Versed 3 mg, Fentanyl 100 mcg, Benadryl 50 mg I administered moderate sedation throughout this _8_ minutes procedure. An independent trained observer pushed medications at my direction, and monitored the patient's level of consciousness and physiological status throughout. PROCEDURE IN DETAIL: After obtaining an informed consent, the patient was placed on left lateral decubitus position. The patient was then sedated with the above medications. A bite block was placed between his teeth. The endoscope was then passed through the oropharynx, into the esophagus, and through the stomach and pylorus up to the second and third part of the duodenum. The endoscope was then withdrawn. The 2nd and 3rd part of the duodenal were normal. Duodenal bulb showed mild duodenitis. The pre-pyloric area and antrum showed mild gastritis. On retroflexion and straight on view the patient had mild portal hypertension gastropathy There was no fresh or old blood in the upper GI tract. Duodenal and gastric biopsies were obtained. The endoscope was then withdrawn into distal esophagus where he had a 2 cm sliding-type hiatal hernia with grade a erosive esophagitis Patient also had one to 2+ esophageal varices that did flattened with insufflation and there was no red Man sign There was a benign-appearing papilloma type nodule in the distal esophagus which was removed partially via cold biopsy forceps The patient tolerated the procedure well without difficulty. COMPLICATIONS : None SPECIMENS: Duodenal biopsies Gastric biopsies Esophageal polypoid nodule DISPOSITION: Transfer back to the floor Stable PLAN: 1. Await for biopsy result 2. Will place pt on Protonix 40 mg bid 3. Carafate 1 g p.o. twice a day 4. Full liquid diet advance as tolerated to soft diet 5. DC aspirin NSAIDs smoking alcohol 6. Outpatient follow up with me for ongoing management of underlying liver cirrhosis varices and portal hypertension KYRA ELIZONDO MD Dec 27, 2024 15:00
[2024-12-27] MEDS: SUCRALFATE 1 GM/10 ML ORAL SUSP PO SCH (21:10)
[2024-12-28 01:00] VITALS: BP 104/57; PULSE 81; RESP 16; TEMP 97.9; O2SAT 93
[2024-12-28 05:00] VITALS: BP 97/52; PULSE 74; RESP 16; TEMP 97.8; O2SAT 93
[2024-12-28 06:39] LABS: Basophils # (auto) 0 10 ^3/uL (0-0.2); Basophils % (auto) 0.9 % (0.0-2.0); Eosinophils # (auto) 0.2 10 ^3/uL (0-0.8); Eosinophils % (auto) 4.2 % (0.0-7.0); Hematocrit 32.9 % (41.0-53.0); Hemoglobin 11.6 g/dL (13.5-17.5); Lymphocytes # (auto) 0.8 10 ^3/uL (0.4-5.4); Mean Corpuscular Hemoglobin 32.9 pg (28.0-32.0); Mean Corpuscular Hgb Conc. 35.3 g/dL (32.0-36.0); Mean Corpuscular Volume 93.2 fL (80.0-100.0); Monocytes # (auto) 0.7 10 ^3/uL (0-1.3); Neutrophils # (auto) 2.8 10 ^3/uL (1.6-8.6); Neutrophils % (auto) 61.9 % (37.0-80.0); Nucleated Red Blood Cells % 0.2 %; Platelet Count (auto) 66 10^3/uL (140-450); Red Blood Cells 3.53 10^6/uL (4.5-5.90); Red Cell Distribution Width 14.1 % (11.8-14.3); White Blood Cell 4.5 10^3/uL (4.4-10.8)
[2024-12-28 08:00] VITALS: PULSE 62; RESP 18; O2SAT 97
[2024-12-28 09:00] VITALS: BP 114/64; PULSE 79; RESP 20; TEMP 98.5; O2SAT 96
[2024-12-28] MEDS ORDERED: PANT40TA2 PO (09:01)
[2024-12-28] MEDS ORDERED: SUCR1SUS26 PO (09:01)
--- NOTE | 2024-12-28 09:05 | DVHDS2 ---
Discharge Summary Date of Admission Dec 25, 2024 at 19:35 Date of Discharge: Dec 28, 2024 Labs/Diagnostic Data: Laboratory Results Test 12/28/24 05:14 12/28/24 04:15 12/27/24 06:17 12/26/24 05:08 POC Glucose 125 mg/dl (70-106) White Blood Count 4.5 10^3/uL (4.4-10.8) Red Blood Count 3.53 10^6/uL (4.5-5.90) Hemoglobin 11.6 g/dL (13.5-17.5) Hematocrit 32.9 % (41.0-53.0) Mean Corpuscular Volume 93.2 fL (80.0-100.0) Mean Corpuscular Hemoglobin 32.9 pg (28.0-32.0) Mean Corpuscular Hemoglobin Concent 35.3 g/dL (32.0-36.0) Red Cell Distribution Width 14.1 % (11.8-14.3) Platelet Count 66 10^3/uL (140-450) Mean Platelet Volume 9.3 fL (6.9-10.8) Neutrophils (%) (Auto) 61.9 % (37.0-80.0) Lymphocytes (%) (Auto) 18.0 % (10.0-50.0) Monocytes (%) (Auto) 15.0 % (0.0-12.0) Eosinophils (%) (Auto) 4.2 % (0.0-7.0) Basophils (%) (Auto) 0.9 % (0.0-2.0) Neutrophils # (Auto) 2.8 10 ^3/uL (1.6-8.6) Lymphocytes # (Auto) 0.8 10 ^3/uL (0.4-5.4) Monocytes # (Auto) 0.7 10 ^3/uL (0-1.3) Eosinophils # (Auto) 0.2 10 ^3/uL (0-0.8) Basophils # (Auto) 0 10 ^3/uL (0-0.2) Nucleated Red Blood Cells 0.2 % Sodium Level 142 mmol/L (136-145) Potassium Level 3.9 mmol/L (3.5-5.1) Chloride Level 109 mmol/L (98-107) Carbon Dioxide Level 25 mmol/L (20-31) Anion Gap 8 (5-15) Blood Urea Nitrogen 12 mg/dL (9-23) Creatinine 0.65 mg/dL (0.700-1.30) Glomerular Filtration Rate Calc 110 mL/min (>90) BUN/Creatinine Ratio 18.5 (10.0-20.0) Serum Glucose 135 mg/dL (74-106) Calcium Level 8.1 mg/dL (8.7-10.4) Total Bilirubin 2.5 mg/dL (0.2-1.0) Aspartate Amino Transferase (AST) 41 U/L (13-40) Alanine Aminotransferase (ALT) 38 U/L (7-40) Alkaline Phosphatase 70 U/L (46-116) Total Protein 5.8 g/dL (5.7-8.2) Albumin 3.2 g/dL (3.2-4.8) Test 12/25/24 18:54 12/25/24 17:05 Urine Color Yellow (Yellow) Urine Clarity Clear (Clear) Urine pH 6.0 (5.0-9.0) Urine Specific [place] 1.036 (1.001-1.035) Urine Protein 1+ (Negative) Urine Ketones Trace (Negative) Urine Blood Negative /uL (Negative) Urine Nitrite Negative (Negative) Urine Bilirubin Negative (Negative) Urine Urobilinogen 3 mg/dL (Negative) Urine Leukocyte Esterase Negative /uL (Negative) Urine RBC 1 /hpf (0 - 3) Urine Microscopic WBC 1 /HPF (0-3) Urine Squamous Epithelial Cells Few /hpf (<5) Urine Bacteria Few /hpf (None Seen) Urine Mucus Moderate (None Seen) Urine Glucose 3+ mg/dL (Normal) Prothrombin Time 13.8 sec (9.3-11.8) Prothrombin Time INR 1.34 (0.9-1.15) Activated Partial Thromboplast Time 29.1 SEC (24.5-34.5) Other Laboratory Tests 12/28/24 04:15 12/27/24 06:17 Brief Hx & Hospital Course: 59 M with prior alcohol use, prior opioid use on suboxone therapy, admitted for hematemesis. Patient was previously using hydrocodone, but recently swapped with suboxone and was having constipation and nausea with it. Patient had hematemesis 1 day [facility]. No BM since 1 week. Using motrin PRN for pain. Pt would like to stop taking suboxone. Patient had EGD, found to have distal esophageal varices, hiatal hernia with erosive esophagitis, esophageal nodule with bx, portal HTN gastropathy and duodenitis. Started on protonix and Carafate, H/H stable, no bleeding. will schedule dc clinic and GI follow up. Condition at Discharge: Good Final Diagnosis/Problems List esophageal varices, non bleeding erosive esophagitis esophageal nodule portal HTN gastropathy Possible cirrhosis thrombocytopenia high INR asymptomatic bacteriuria NIDDM opioid induced constipation hx of opioid use on suboxone (not taking inpatient) hx of alcohol use Discharge Disposition: Home Discharge Statement: "Patient was advised to return to the ER or call 911 if any headaches, dizziness, shortness of breath, chest pain, abdominal pain, bleeding, fevers, or worsening of medical condition. Patient was counseled about treatment plan, medications, possible side effects, patientverbalized understanding. All questions were answered to the best of my ability. This discharge took greater then 30 minutes in planning, reviewing documentation, counseling the patient, and discussing with other team members." ASSESSMENT ASSESSMENT Assessment Date of Service: Dec 28, 2024 Billing Provider: CRISSY BUTT MD Common Visit Codes: [id number] DISCH DAY >30min CRISSY BUTT MD Dec 28, 2024 09:05
[2024-12-28] MEDS: PANTOPRAZOLE 40 MG TAB PO ONE (09:19)
--- NOTE | 2024-12-28 11:06 | ECG ---
[facility] Test Date: 2024-12-26 Test Time: 22:50:52 Pat Name: NACHO CELESTIN Department: Room: 0273 A Gender: M Pickle Sorter: SARBJIT : [id number] Requested By: CRISSY BUTT Order Number: [id number] Reading MD: Maninder Queen Measurements Intervals [place] Rate: 72 P: 10 MO: 154 QRS: 41 QRSD: 97 T: -2 QT: 416 QTc: 456 Interpretive Statements Sinus rhythm Borderline T abnormalities, inferior leads Baseline wander in lead(s) I,III,aVL,aVF Electronically Signed On 12-29-2024 12:39:13 PDT by Maninder Queen Please click the below link to view image of tracing.
[2024-12-28 13:00] VITALS: BP 117/71; PULSE 74; RESP 20; TEMP 98.6; O2SAT 95
[2024-12-28] MEDS ORDERED: PANTOPRAZOLE 40 MG TAB PO SCH (17:00)
--- NOTE | 2024-12-28 23:22 | DVHPN2 ---
Progress Note - Dictate Date Seen: Dec 28, 2024 (Late entryPatient seen at 12 noon) Medical Necessity Reason Pt with a Central, PICC or Fol: No Subjective No new complaints Patient is tolerating diet There was no nausea vomiting No further episodes of GI bleeding vital signs Vital Sign Date Time Temp Pulse Resp B/P (MAP) Pulse Ox O2 Delivery O2 Flow Rate FiO2 12/28/24 13:00 98.6 74 20 117/71 (86) 95 98.6 12/28/24 08:00 Room Air* 0 21 Total Intake and Output 12/27/24 12/27/24 12/28/24 15:00 23:00 07:00 Intake Total 100 ml 150 ml 1200 ml Balance 100 ml 150 ml 1200 ml objective General: NAD, AAOX3 Chest: lung adames clear to auscultation Heart: RRR, no murmur Abdomen: non-distended, no tenderness to palpation, +BS laboratory and microbiology Laboratory Tests 12/28/24 04:15 12/27/24 06:17 Test 12/27/24 06:17 Range/Units Serum Glucose 135 H 74-106 mg/dL Problems(with codes): (1) Portal hypertension with esophageal varices (2) Coagulopathy (3) Hematemesis Prognosis Plan Discharge planning is in progress Patient will follow up in continuity clinic and he can follow up in GI clinic for ongoing management of liver disease Patient should avoid aspirin and NSAIDs and maintain himself on a PPI Plan discussed with: Patient KYRA PLEITEZ MD Dec 28, 2024 23:22
== END 2024-12-28 15:17 | disposition home or self-care (01) | DRG 242 ==
LOC: ER 15:59 → OVERFLOW 19:35 → WEST WING 12-26 21:25
PROVIDERS: ADMIT Student in an Organized Health Care Education/Training Program; ATTEND Student in an Organized Health Care Education/Training Program
PROC: 0DB68ZX Excision of Stomach, Via Natural or Artificial Opening Endoscopic, Diagnostic (ICD-10-PCS; 2024-12-27)
PROC: 0DB58ZX Excision of Esophagus, Via Natural or Artificial Opening Endoscopic, Diagnostic (ICD-10-PCS; 2024-12-27)
PROC: 0DB98ZX Excision of Duodenum, Via Natural or Artificial Opening Endoscopic, Diagnostic (ICD-10-PCS; principal; 2024-12-27 14:38)
DX: K22.11 Ulcer of esophagus with bleeding (principal); I85.01 Esophageal varices with bleeding; D69.6 Thrombocytopenia, unspecified; K76.6 Portal hypertension; K74.60 Unspecified cirrhosis of liver; T40.2X5A Adverse effect of other opioids, initial encounter; E11.9 Type 2 diabetes mellitus without complications; K59.03 Drug induced constipation; F11.20 Opioid dependence, uncomplicated; R16.1 Splenomegaly, not elsewhere classified; K44.9 Diaphragmatic hernia without obstruction or gangrene; K31.89 Other diseases of stomach and duodenum; K29.70 Gastritis, unspecified, without bleeding; K29.80 Duodenitis without bleeding; Z79.84 Long term (current) use of oral hypoglycemic drugs; Z79.82 Long term (current) use of aspirin; Y92.89 Other specified places as the place of occurrence of the external cause
CPT/HCPCS: 36415; 43239; 71045; 74176; 80048; 80053; 81001; 82962; 85014; 85018; 85025; 85610; 85730; 86850; 86900; 86901; 93005; 96365; 96375; G0378; J1815; J2250; J2405; J2470